=== PATIENT | female | born 1940 | race Caucasian/White ===

== ENCOUNTER 2016-10-29 09:15 | Day surgery (SDC) | payer MEDICARE, MEDICAID ==
[~2016-10-29] VITALS: Ht 157.5 cm; Wt 56.7 kg
[~2016-10-29 09:15] MED LIST: ARTHRITIS PAIN650 M1 PO; AZITHROMYCIN250 M1 PO; AZITHROMYCIN250 MG PO; CALCIUM 600 + V1 TAB PO; CARDIZEM CD240 MG PO; COMBIVENT1 ARO IH; COREG 3.125M3.125 MG PO; COREG 6.25MG6.25 MG PO; CRESTOR10 MG PO; CUBICIN 500 MG500 MG IV; GABAPENTIN300 MG PO; GAS RELIEF 8080 MG PO; GENTAMICIN80 MG/2 ML IV; IPRATROPIUM BROM3 M1 IH; LEVAQUIN500 MG PO; LEVOTHYROXIN0.075 M1 PO; LORTAB 5/500 501 TAB PO; LOSARTAN POTASS1 TA3 PO; LOSARTAN POTASS50 MG PO; MELATONIN3 M1 PO; METOCLOPRAMIDE10 M2 PO; MYLANTA 150 ML150 ML PO; NEXIUM40 MG PO; NYSTATIN SU60 ML/BOT PO; OMNICEF 300 MG300 MG PO; PILOCARPINE HYDR5 MG PO; PILOCARPINE5 MG PO; PREDNISONE 20MG20 MG PO; PROVENTIL0.09 MG/A1 IH; RANITIDINE HCL150 MG PO; SALINE FLUSH 1010 ML IV; SALMETEROL-F28 PUFFS IN; TUMS500 MG PO; XARELTO20 MG PO
--- NOTE | 2016-10-29 11:17 | Operative Note ---
Upper GI Endoscopy Procedure date: 10/29/16 Date of : 36 Procedure:Upper GI Endoscopy with biopsy Indications: anemia, abd pain Performing Provider: Shaheen Lechuga Referring Provider: Nurys Sedation: MAC Procedure: Prior to the procedure, a history and physical exam was performed, and patients medications and allergies were reviewed. The risks and benefits of the procedure and the sedation options and risks were discussed with the patient. All questions were answered and informed consent was obtained. The patient was brought to the procedure room. Patient identification and proposed procedure were verified by the physician and the nurse. The patient was placed in a left lateral decubitus position and the scope was passed under direct vision. Throughout the procedure, the patient's blood pressure, pulse, and oxygen saturations were monitored continuously. The endoscope was introduced through the mouth, and advanced to the second part of duodenum. The upper GI endoscopy was accomplished without difficulty. The patient tolerated the procedure well. Findings: 1) Polypoid mucosa (called polyp) duodenal bulb into 2nd portion - villous appearance - biopsied 2) Normal 2nd portion duodenum - biopsied to r/o Sprue 3) Mildly erythematous antrum - biopsied 4) Hiatal hernia 4 cm (32 - 36 cm) - no esophagitis seen Otherwise WNL Immediate complications: None EBL (ml): 2 Impression: 1) Hiatal hernia - no GERD seen 2) Benign polypoid mucosa (suspect hyperplasia, not adenoma 3) Normal duodenal mucosal - biopsied to r/o sprue (doubt) 4) Nonspecific antral erythema - possible chenmical gastritis (NSAID) Recommendations: 1) f/u pathology 2) cont PPI 3) consider pill endoscope if DIANE persists at 2157
[2016-10-29 14:20] VITALS: BP 156/81
== END 2016-10-29 12:01 | disposition home or self-care (01) ==
LOC: SDC 09:15
PROVIDERS: Internal Medicine Gastroenterology
PROC: 0DB78ZX Excision of Stomach, Pylorus, Via Natural or Artificial Opening Endoscopic, Diagnostic (ICD-10-PCS; 2016-10-29)
PROC: 0DB98ZX Excision of Duodenum, Via Natural or Artificial Opening Endoscopic, Diagnostic (ICD-10-PCS; principal; 2016-10-29 10:00)
DX: R10.9 Unspecified abdominal pain (principal); K31.7 Polyp of stomach and duodenum; K44.9 Diaphragmatic hernia without obstruction or gangrene; D13.2 Benign neoplasm of duodenum

== ENCOUNTER 2016-11-06 16:10 | Emergency (ER) | payer MEDICARE, MEDICAID ==
[~2016-11-06] VITALS: Ht 157.5 cm; Wt 54.4 kg
--- NOTE | 2016-11-06 16:26 | Emergency Room Report ---
See Addendum History of Present Illness Time Seen by [id number] Presenting Problem in Triage Pt arrived: Presenting Problem: Onset of symptoms date/time:/ or onset unknown for: Treatment Prior to Arrival: [employer] Provided by: Sepsis Risk Assessment: Temp: B/P: MAP: Pulse: Resp: Recent fever? Clinical Suspician of Infection? Mental Status: Sepsis Risk: Have you (or family members/close friends) recently traveled outside the [place]? If Yes, where/when: Have you had exposure to infectious disease within the past month? TB? Other? Specify: Stood up on very low stool to get lamp from top of fridge when she fell backward accidentally and struck head and left arm as well as left leg. C/O bruising to skull as well as bruising to left elbow and minor abrasion to left lower leg. No weakness or numbness; neg LOC; no chest pain or SOB; no pelvic or hip pain; no neck or back pain; does not take anticoagulants. ALLERGIES Coded Allergies: Penicillins (FACIAL NUMBNESS 03/12/15) aspirin ("BLEEDING" 03/14/15) Home Medications Reported Medications Acetaminophen (Arthritis Pain Relief) 650 MG PO Q4HP ALBUTEROL (Proventil Hfa Inhaler) 2 PUFF IH QID Losartan Potassium (Losartan 50MG) 50 MG PO DAILY #90 Carvedilol (Coreg 3.125MG) 3.125 MG PO BID Ranitidine Hcl (Ranitidine 150MG) 300 MG PO DAILY DILTIAZEM HCL (Diltiazem 24HR Cd) (Unknown Dose) PO BID Levothyroxine Sodium (Levothyroxine 0.075MG) 0.075 MG PO DAILY Gabapentin (Gabapentin 300MG) 300 MG PO QHS Salmeterol 50/Fluticasone 250 (Advair 250-50 Diskus) 1 PUFF IN BID ALBUTEROL-IPRATROPIUM (Iprat-Albut 0.5-3(2.5) MG/3 Ml) 3 ML IH TID #120 NEB Rosuvastatin Calcium (Crestor) 10 MG PO QHS #90 TAB PILOCARPINE HCL (Pilocarpine Hydrochloride) 5 MG PO TID #270 TAB History Medical History General CAD? No Angina: No NV: No Hypertension? Yes Hyperlipidemia? Yes CHF? No DVT? No PE? No COPD? Yes Asthma? No Anemia? No GERD? Yes Gastric ulcers? No GI Bleed? Yes Hernia? No Thyroid Problems? Yes Hypothyroidism? No CVA? No Seizures? No Diabetes? No Renal Insuffiency? No End Stage Renal Disease? No UTI? Yes Stones? No BPH? No GB Disease: Yes Nephritic Syndrome? No Asplenia? No Hepatitis? No Sickle Cell Disease? No Arthritis? No Migraines? No Cataracts? Yes Glaucoma? No MRSA? No HIV? No TB? No Anxiety? No Depression? No Cancer? Yes Site: BREAST, LUNG, 2 FACIAL More? No Additional hx: Pneumonia and bacteremia 02/2015 with haemophilus and bacteremia 03/2015 with enterococcus Immunization Hx DT/Tetanus > 10 Years Ago Flu 2015-FSN Pneumonia Received In Past Surgical Hx Previous Surgery?Y PARTIAL THYROIDECTOMY CATARACTS GALLBLADDER MASTECTOMY (LEFT SIDE) LOBECTOMY (RIGHT) LEFT SIDE INSIDE JAW SKIN CANCER FOREHEAD CATARACTS Family History Family Hx Diabetes No CAD No Hypertension Yes Hyperlipidemia Yes Cancer No TB No Social History Smoking Hx Packs/day 1 1/2 - 2 Packs Alcohol Alcohol: No Review of Systems All Other Systems Reviewed and Negative Musculoskeletal see HPI Skin see HPI Physical Exam Vital Signs Vital Signs Date Time Temp Pulse Resp B/P Pulse O2 O2 Flow FiO2 Ox Delivery Rate 11/06 1718 93 14 155/93 98 11/06 1615 97.9 78 14 108/74 98 General Appearance normal appearance, WD/WN, no apparent distress Eye Exam - bilateral eye normal exam (no diplopia or field cuts), bilateral eye PERRL, bilateral eye EOMI Ear, Nose, Throat hearing grossly normal (raised contusion sup. skull), no drainage from ears or nose; no skull deformity or stepoff Neck normal inspection, non-tender, supple, full range of motion Respiratory Status Yes: trachea midline, chest symmetrical, non tender chest. No: respiratory distress, tender on palpation, use of accessory muscles, pain on inspiration, pain on expiration, productive cough, non productive cough. Lung Sounds bilateral: normal breath sounds, lungs clear. Cardiovascular normal exam, regular rate/rhythm, no peripheral edema, no gallop, no JVD, no murmur, no rub, normal peripheral pulses Peripheral Pulses Pulses normal Yes Gastrointestinal normal bowel sounds, normal exam, non tender, soft, no organomegaly, no pulsatile mass, no guarding, no rebound Extremities minor abrasion/skin tear left lower leg, minor contusion left elbow, skull contusion as per above; has FROM B hips, FROM all joint BUE and BLE with no deformities or stepoffs, no asymmetry. Strength 5 Upper Ext (L), 5 Upper Ext (R), 5 Lower Ext (L), 5 Lower Ext (R) Neurologic alert, client portfolio manager II-XII nml as tested, normal exam, no motor/sensory deficits, oriented x 3 Glascow Coma Scale Glascow Coma Scale Response Value EYE response: 4 Spontaneously 4 MOTOR response: 6 OBEYS 6 VERBAL response: 5 Oriented & Converses 5 Total 15 Reflexes DTR 2+ ankle (R), 2+ ankle (L) Skin abrasions, bruising Medical Decision Making LABS/Meds/Orders Pt receiving controlled substance in ED? No Results/Orders Current Medication Orders Sig/Dora Start time Last Medication Dose Route Stop Time Status Admin Diphtheria/Pertussis/ 0.5 ML ONCE ONE 11/06 1630 DC Tetanus Vacc IM 11/06 1631 Orders Procedure Date/time Status DIET-NOTHING BY MOUTH 11/06 D Active ELBOW-LT-3 VIEWS 11/[address] HEAD REQ 11/[address] SCAN REQ 11/06 161 Complete PELVIS AP ONLY 11/06 161 Active XRAY/CT/US XRAY/CT/US XRAY elbow, pelvis XR interpretation by reviewed by me Xray Results normal/NAD, no fracture seen (DJD) CT head, C-spine CT interpretation by reviewed by me (report reviewed) Time results known: 1725 CT Results no acute findings; scalp hematoma; no fracture; "possible mengioma " Departure Departure Time of Disposition 1725 Disposition DC Home or Self Care(routine) Clinical Impression Primary Impression: Head contusion Qualifiers: Encounter type: initial encounter Contusion of head detail: scalp Qualified Code: S00.03XA - Contusion of scalp, initial encounter Secondary Impressions: Abrasion of left leg Qualifiers: Encounter type: initial encounter Qualified Code: S80.812A - Abrasion, left lower leg, initial encounter Condition STABLE Referrals Liu Nuno MD (Family) Patient Instructions Closed Head Injury, DI for Abrasion Additional Instructions See Dr. Nuno for recheck in one day, Tylenol as needed Discharge Counseling Counseled pt/family regarding diagnosis, test results, home care, follow up needs ED Critical Care Critical Care No at [id number]
--- NOTE | 2016-11-06 17:15 | RADIOLOGY REPORT PS360 ---
CT HEAD W/O CONTRAST HISTORY: Headache following injury/contusion FELL; HIT BACK OF HEAD ORDERING PHYSICIAN: Edith Palmer MD PATIENT AGE: 76 years COMPARISON: None TECHNIQUE: Axial images obtained without contrast. Brain and bone windows reviewed. FINDINGS: No midline shift, mass effect, intracranial hemorrhage, hydrocephalus, or extra-axial fluid collection is evident. There is an extra-axial rounded calcification in the right frontal region at 11 mm and could represent a small calcified meningioma versus an area of enostosis. Prominent scalp hematoma is present involving the left parietal area at the vertex. The calvarium has an unremarkable appearance. No mastoid effusion. The visualized paranasal sinuses are unremarkable. IMPRESSION: 1. No acute intracranial pathology. 2. Left parietal scalp hematoma. 3. Possible right frontal meningioma versus calvarial enostosis
--- NOTE | 2016-11-06 17:19 | RADIOLOGY REPORT PS360 ---
CT CERVICAL SPINE W/O CONT INDICATION: Neck pain following injury FELL; HIT BACK OF HEAD ORDERING PHYSICIAN: Edith Palmer MD PATIENT AGE: 76 years COMPARISON: None TECHNIQUE: Axial images are obtained without contrast. Sagittal and coronal reformatted images are reviewed as well. FINDINGS: Normal alignment. No fracture or dislocation. Degenerative disc disease C3-C4 and C4-C5. Mild bilateral foraminal narrowing at C3-C4 from uncovertebral hypertrophy. Centrilobular emphysematous changes in the lung apices with postsurgical changes on the right. IMPRESSION: 1. No acute fracture. 2. Cervical spondylosis. 3. Emphysematous changes of the lungs with postsurgical changes on the right
[2016-11-06 18:10] VITALS: BP 155/93
--- NOTE | 2016-11-06 22:48 | RADIOLOGY REPORT PS360 ---
PELVIS AP ONLY HISTORY: Fall with injury and pain FELL, ORDERING PHYSICIAN: Edith Palmer MD PATIENT AGE: 76 years COMPARISON: None FINDINGS: No fracture or dislocation is evident. No significant degenerative change. No lytic or blastic change. The SI joints have an unremarkable appearance. There is generalized vascular calcification. IMPRESSION: No acute finding
--- NOTE | 2016-11-06 22:50 | RADIOLOGY REPORT PS360 ---
ELBOW-LT-3 VIEWS HISTORY: Pain following injury fall ORDERING PHYSICIAN: Edith Palmer MD PATIENT AGE: 76 years COMPARISON: None FINDINGS: BONY STRUCTURES: No fracture or dislocation. No lytic or blastic change. Normal mineralization. SOFT TISSUES: Unremarkable. No radio opaque foreign bodies. No displaced fat pad. JOINT SPACE: Well-preserved. No significant arthritic changes evident. IMPRESSION: Negative elbow.
== END 2016-11-06 18:11 | disposition home or self-care (01) ==
LOC: ER 16:10
DX: S00.03XA Contusion of scalp, initial encounter (principal); S80.812A Abrasion, left lower leg, initial encounter; I10 Essential (primary) hypertension; K21.9 Gastro-esophageal reflux disease without esophagitis; W17.89XA Other fall from one level to another, initial encounter; Y92.019 Unspecified place in single-family (private) house as the place of occurrence of the external cause; Z23 Encounter for immunization

== ENCOUNTER → 2016-11-18 | Outpatient (CLI) | payer MEDICARE, MEDICAID ==
[2016-11-18 11:40] LABS: BUN 15 mg/dL (7-18)
[2016-11-18 11:41] LABS: GFR (ESTIMATED) 48 ML/MIN (59-)
--- NOTE | 2016-11-19 07:25 | RADIOLOGY REPORT PS360 ---
CT CHEST W/ CONTRAST INDICATION: RIGHT COLON MASS,CANCER ORDERING PHYSICIAN: Yasmany Swan MD PATIENT AGE: 76 years COMPARISON: 07/30/2015 TECHNIQUE: Axial images are obtained with 75 mL is Isovue-370 . Sagittal and coronal reformatted images are reviewed as well. FINDINGS: No mediastinal or hilar mass or adenopathy is evident. There is a moderate sized hiatal hernia. Heart size is normal. Pulmonary arteries are somewhat prominent with the right main pulmonary artery at 2.7 cm and the left main pulmonary artery and 2.6 cm. There are centrilobular emphysematous changes with scattered areas of fibrosis. Postsurgical changes are present in the right apex. There is a 5 mm nodular opacity in the right upper lung zone and may also be related to fibrotic change. This area is not included on the previous chest CT. No effusions or infiltrates. Atelectatic or fibrotic changes noted in the lung bases. Incidental note is made of avascular necrosis of the right humeral head. Bony structures are otherwise unremarkable. IMPRESSION: 1. Centrilobular emphysema with pulmonary fibrosis. 2. Mildly prominent pulmonary arteries suggesting pulmonary arterial hypertension. 3. 5 mm nodular opacity right upper lobe probably related to fibrotic change. Consider six-month follow-up for confirmation. 4. 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
--- NOTE | 2016-11-19 07:38 | RADIOLOGY REPORT PS360 ---
CT ABD PELVIS W/ CONTRAST CLINICAL INDICATION: RIGHT COLON MASS,CANCER ORDERING PHYSICIAN: Yasmany Swan MD PATIENT AGE: 76 years COMPARISON: None TECHNIQUE: Axial images obtained with sagittal and coronal reformats. PROCEDURE: Oral Contrast: Redicat IV Contrast: 75 mL Isovue-370 performed in conjunction with the chest CT . FINDINGS: The liver, spleen, right adrenal gland, and pancreas have an unremarkable appearance. There is a nodule of the left adrenal gland measuring 14 mm. The density is greater than what one would expect for an adenoma. A metastatic lesion is a consideration. Repeat exam with adrenal protocol without and with contrast and with washout images may help to further characterize if clinically warranted. There is moderate sized hiatal hernia. There are vascular calcifications of the kidneys. No hydronephrosis. No obstructing ureteral calculi. There is moderate circumferential thickening of the mid aspect ascending colon involving a segment measuring approximately 6 cm in length. There is mild infiltration of the surrounding pericolic fat suggesting extracolonic extension of neoplasm. This is immediately adjacent to the medial and inferior aspect of the right hepatic lobe. A good fat plane is not identified between the mass and the tip of the right lobe of the liver. There are few small lymph nodes medial to the ascending colon measuring up to 1 cm and may also be involved by neoplasm. The appendix is unremarkable. There is no evidence of colonic obstruction. There is a tiny umbilical hernia containing fat. There is diverticulosis of the sigmoid colon but no evidence of diverticulitis. No acute bony anomalies are evident. There is some mild sclerosis of the right SI joint and mild degenerative changes of the lumbar spine. IMPRESSION: 1. Moderate circumferential thickening of the mid aspect of the ascending colon consistent with neoplasm with infiltration of the pericolic fat consistent with spread to the adjacent paracolic fat with a diffuse small right paracolic lymph nodes also noted and may be involved by neoplasm. This mass abuts the inferior aspect of the right hepatic lobe with some minimal blurring of the fat plane between the liver and the colon which could represent local invasion. 2. Enlarged left adrenal gland more dense somewhat one would expect for an adenoma. Metastatic involvement is a consideration. Evaluation without and with contrast and with washout images may be of further value. 3. Moderate-sized hiatal hernia
== END ==
LOC: RAD 11:14
PROVIDERS: Surgery
DX: C18.9 Malignant neoplasm of colon, unspecified (principal); Z03.89 Encounter for observation for other suspected diseases and conditions ruled out
CPT/HCPCS: Q9967

== ENCOUNTER → 2016-12-04 | Outpatient (CLI) | payer MEDICARE, MEDICAID ==
[2016-12-04 08:11] LABS: BUN 16 mg/dL (7-18)
[2016-12-04 08:15] LABS: GFR (ESTIMATED) 48 ML/MIN (59-)
--- NOTE | 2016-12-08 06:33 | RADIOLOGY REPORT PS360 ---
MRI-ABD W/WO CLINICAL INDICATION: Colon cancer. Abnormal CT scan with possible hepatic extension. RT SIDED COLON CA WITH POSSIBLE DIRECT HEPATIC INVASION ORDERING PHYSICIAN: FELIZ ANN PATIENT AGE: 76 years TECHNIQUE: Multiplanar multiecho sequences performed without and with contrast. Motion artifact is present on several sequences COMPARISON: CT scan of 11/18/2016 FINDINGS: ] Several sequences obscuring fine detail. Ascending colon mass is again noted as seen on the CT scan. This abuts the medial aspect of the right hepatic lobe inferiorly. Axial and post enhanced coronal images are degraded due to motion artifact. The T2 coronal images suggest a sliver of a fat plane between the mass and the liver. No obvious direct invasion into the hepatic parenchyma. No obvious hepatic lesions. No adrenal mass. There is moderate sized hernia IMPRESSION: 1. Moderate image degradation artifact due to motion. 2. No obvious hepatic parenchymal invasion from the ascending colon mass
== END ==
LOC: RAD 11-27 09:30
PROVIDERS: Surgery
DX: C18.9 Malignant neoplasm of colon, unspecified (principal); Z03.89 Encounter for observation for other suspected diseases and conditions ruled out
CPT/HCPCS: A9576